=== PATIENT | female | born 1935 | race Caucasian/White ===

== ENCOUNTER 2019-09-15 07:45 | Emergency (ER) | payer MEDICARE, SELFPAY ==
[2019-09-15 07:52] VITALS: BP 164/85; PULSE 77; RESP 16; TEMP 36.6; O2SAT 100
--- NOTE | 2019-09-15 08:09 | ED.LOWEXIN ---
HPI - Extremity Injury (Lower) General Chief Complaint: Extremity Injury, Lower Stated Complaint: hip pain Time Seen by Provider: 09/15/19 07:49 Source: RN notes reviewed History of Present Illness HPI Narrative: A 84 y/o female with a history of hypertension, osteoarthritis, DVT on chronic anticoagulation therapy here with complaints of left hip pain for past few weeks. Patient states that she was seen at urgent care yesterday had an x-ray done. She is here to get a cortisone shot in the hip. She denies any trauma or fever or chills. She states that she lives in [place] and now visiting her son here in [place]. complaint: hip injury Injury: Left: hip Severity: moderate Severity scale (1-10): 5 Relieving factors: nothing Exacerbating factors: movement Related Data Home Medications Medication Instructions Recorded Confirmed Imodium Multi-Symptom Relief 1 tablet PO Q1H PRN 06/30/19 06/30/19 ascorbic acid (vitamin C) [Vitamin 500 mg PO DAILY 06/30/19 06/30/19 C] cholecalciferol (vitamin D3) 400 unit PO DAILY 06/30/19 06/30/19 fosinopril 30 mg PO BID 06/30/19 06/30/19 hydroxyurea 500 mg PO DAILY 06/30/19 06/30/19 metoprolol tartrate 50 mg PO Q12H 06/30/19 06/30/19 pantoprazole 40 mg PO BID 06/30/19 06/30/19 potassium chloride 20 meq PO DAILY 06/30/19 06/30/19 vitamin B complex [B 1 tablet PO DAILY 06/30/19 06/30/19 Complex-Vitamin B12] Allergies Allergy/AdvReac Type Severity Reaction Status Date / Time enoxaparin Allergy Unknown Unknown Verified 09/15/19 07:55 iodine Allergy Unknown Unknown Verified 06/30/19 10:47 sulfur dioxide Allergy Unknown Unknown Verified 06/30/19 10:47 heparin AdvReac Intermediate Unknown Verified 06/30/19 10:47 Sulfa (Sulfonamide AdvReac Intermediate Rash Verified 06/30/19 10:47 Antibiotics) Review of Systems Review of Systems: All systems reviewed & are unremarkable except as noted in HPI and below Constitutional: Constitutional: Reports no additional constitutional complaints Eyes: Eyes: Reports no additional eye complaints Respiratory: Respiratory: Reports no additional respiratory complaints Gastrointestinal: Gastrointestinal: Reports no additional gastrointestinal complaints Musculoskeletal: Musculoskeletal: Reports no additional musculoskeletal complaints [facility] Past Medical History Medical History Anemia Cataracts, bilateral Cholecystectomy planned Depression DVT (deep venous thrombosis) On chronic anticoagulation on Coumadin History of rectal polyps HTN (hypertension) Hx: UTI (urinary tract infection) Kidney stones July 2018 Surgical History Surgical History H/O cystoscopy With ureteral scope due to hydronephrosis July 2018. Hydronephrosis with thought to be due to recent passage of a stone H/O left wrist surgery H/O rectal polypectomy H/O: hysterectomy Due to endometriosis History of cataract surgery Bilateral History of total left hip arthroplasty Left complicated by postop DVT Hx of cholecystectomy Family History Family History Mother Lung cancer Son , of a massive PE prior complications of his leukemia/lymphoma. He was in his 50s. Lymphoma Pulmonary embolism Daughter , Due to brain tumor. No problems noted. Son Brain tumor This is a son that she was visiting at the time of her admission. Parkinsons Social History Social History Social History: The patient is from [place]. She is here visiting her only remaining son. Patient is a lifelong nonsmoker and does not drink alcohol or use illicit substances. She is independent in activities of daily living. Smoking status: Never smoker Second hand tobacco smoke exposure: Yes Alcohol intake: never Substance use: never Substance use ty
== END 2019-09-15 09:07 | disposition home or self-care (01) ==
PROVIDERS: Emergency Provider Family Medicine
DX: M25.552 Pain in left hip (principal); I10 Essential (primary) hypertension; Z86.718 Personal history of other venous thrombosis and embolism; M19.90 Unspecified osteoarthritis, unspecified site; Z79.01 Long term (current) use of anticoagulants; Z86.2 Personal history of diseases of the blood and blood-forming organs and certain disorders involving the immune mechanism; Z87.442 Personal history of urinary calculi; Z98.42 Cataract extraction status, left eye; Z98.41 Cataract extraction status, right eye; Z96.642 Presence of left artificial hip joint
CPT/HCPCS: 99283

== ENCOUNTER 2019-11-24 11:45 | Emergency (ER) | payer MEDICARE, SELFPAY ==
[2019-11-24] VITALS (7 sets, daily range): BP systolic 131–165; BP diastolic 66–80; PULSE 69–75; RESP 10–18; TEMP 37; O2SAT 97–100
--- NOTE | ~2019-11-24 | XR_ITS ---
XR chest 2V 11/24/2019 13:03 Indication: Chest palpitations Procedure: 2 view chest Comparison: 07/24/2019 Findings: Heart size normal. No focal air space disease, pulmonary edema, pleural effusion or suspect ed pneumothorax. The lungs are hyperinflated which is consistent with, but not diagnostic of chronic obstructive pulmonary disease. Impression: 1: No acute cardiopulmonary disease. Reviewed, dictated and finalized at location A. Impression: 1: No acute cardiopulmonary disease.
--- NOTE | 2019-11-24 12:24 | ECG_ITS ---
Measurements Intervals [place] Rate: 72 P: 61 PA: 183 QRS: -30 QRSD: 81 T: -39 QT: 362 QTc: 398 Interpretive Statements SINUS RHYTHM EARLY PRECORDIAL R/S TRANSITION INFERIOR INFARCT, AGE INDETERMINATE BASELINE WANDER- I, II, III ABNORMAL ECG Electronically Signed On 11-24-2019 12:39:55 CDT by Fei Bain D.O.
[2019-11-24] MEDS: ASPIRIN 81 MG CHEWABLE TABLET 324 MG PO (12:36)
[2019-11-24 12:57] LABS: Basophils Percent Auto 0.5 % (0.2-1.2); Eosinophils Absolute Auto 0.1 K/mm3 (0-0.3); Hematocrit 39.6 % (37.0-47.0); Hemoglobin 12.5 g/dL (12.0-15.0); Immature Granulocyte Absolute 0.02 K/mm3 (0.00-0.031); Immature Granulocyte Percent A 0.3 % (0-0.5); Lymphocytes Absolute Auto 1.68 K/mm3 (0.9-3.2); Mean Corpuscular HGB Conc 31.6 g/dl (32-36); Mean Corpuscular Hemoglobin 31.4 pg (26-34); Mean Corpuscular Volume 99.5 fl (80-100); Mean Platelet Volume 8.8 fl (7.4-10.4); Monocytes Absolute Auto 0.4 K/mm3 (0.1-0.6); Monocytes Percent Auto 6.3 % (2.6-8.5); Neutrophils Absolute Auto 3.8 K/mm3 (1.3-6.7); Neutrophils Percent Auto 63.9 % (45.5-73.1); Platelet Count Result 319 k/mm3 (150-375); Red Blood Count 3.98 M/mm3 (4.2-5.4); Red Cell Distribution Width 16.8 % (11.5-14.5)
[2019-11-24 13:05] LABS: Blood Urea Nitrogen 15 mg/dL (7-17); Calcium 9.8 mg/dL (8.4-10.2); Carbon Dioxide 29 mmol/L (22-30); Chloride 104 mmol/L (98-107); Estimated CRCL calculation 45 ml/min; Estimated Glomerular Filt Rate > 60; Glucose 95 mg/dL (65-105); Potassium 4.1 mmol/L (3.4-5.0); Sodium 137 mmol/L (137-145)
[2019-11-24 13:11] LABS: INR 3.2; Partial Thromboplastin Time 41.5 SECONDS (22.3-36.8); Prothrombin Time 32.2 Seconds (11.1-14.7)
[2019-11-24 13:17] LABS: Troponin I < 0.012 ng/mL (0.000-0.034)
--- NOTE | 2019-11-24 13:35 | ED.GENADULT ---
HPI - General Adult General Chief complaint: Unspecified Stated complaint: worried about her pulse Time Seen by Provider: 11/24/19 11:59 Source: RN notes reviewed History of Present Illness HPI narrative: Patient presents emergency department from home for rapid heart rate. Patient states that at home this morning she was checking her blood pressure and pulse with her at home machine when she noted elevated heart rate readings. Patient states she did feel like her heart was racing during these episodes. States she currently is asymptomatic she denies have any fevers or chills chest pain shortness of breath abdominal pain or any other symptoms. Patient denies any previous history of arrhythmia Related Data Home Medications Medication Instructions Recorded Confirmed Imodium Multi-Symptom Relief 1 tablet PO Q1H PRN 06/30/19 06/30/19 ascorbic acid (vitamin C) [Vitamin 500 mg PO DAILY 06/30/19 06/30/19 C] cholecalciferol (vitamin D3) 400 unit PO DAILY 06/30/19 06/30/19 fosinopril 30 mg PO BID 06/30/19 06/30/19 hydroxyurea 500 mg PO DAILY 06/30/19 06/30/19 metoprolol tartrate 50 mg PO Q12H 06/30/19 06/30/19 pantoprazole 40 mg PO BID 06/30/19 06/30/19 potassium chloride 20 meq PO DAILY 06/30/19 06/30/19 vitamin B complex [B 1 tablet PO DAILY 06/30/19 06/30/19 Complex-Vitamin B12] Allergies Allergy/AdvReac Type Severity Reaction Status Date / Time enoxaparin Allergy Unknown Unknown Verified 11/24/19 12:08 iodine Allergy Unknown Unknown Verified 06/30/19 10:47 sulfur dioxide Allergy Unknown Unknown Verified 11/24/19 12:08 heparin AdvReac Intermediate Unknown Verified 11/24/19 12:08 Sulfa (Sulfonamide AdvReac Intermediate Rash Verified 11/24/19 12:08 Antibiotics) Review of Systems Review of Systems: Narrative: Gen.: Denies fevers or chills ENT: Denies congestion Respiratory: Denies shortness of breath or cough CV: See HPI s GI: Denies abdominal pain nausea, emesis or diarrhea Musculoskeletal: Denies back pain or muscle pain Neuro: Denies numbness, tingling, weakness or focal weakness Skin: Denies rash Except as documented, all other systems reviewed and negative PMFSH Past Medical History Medical History Anemia Cataracts, bilateral Cholecystectomy planned Depression DVT (deep venous thrombosis) On chronic anticoagulation on Coumadin History of rectal polyps HTN (hypertension) Hx: UTI (urinary tract infection) Kidney stones July 2018 Family History Family History Mother Lung cancer Son , of a massive PE prior complications of his leukemia/lymphoma. He was in his 50s. Lymphoma Pulmonary embolism Daughter , Due to brain tumor. No problems noted. Son Brain tumor This is a son that she was visiting at the time of her admission. Parkinsons Social History Social History Social History: The patient is from [place]. She is here visiting her only remaining son. Patient is a lifelong nonsmoker and does not drink alcohol or use illicit substances. She is independent in activities of daily living. Smoking status: Never smoker Second hand tobacco smoke exposure: Yes Alcohol intake: never Substance use: never Substance use type: does not use Gender identity (if verbalized by the patient): Female Spiritual care concerns: No Agree to blood products: Yes Exam Narrative: Exam Narrative: APPEARANCE: No acute distress, nontoxic, resting in bed EYES: EOMI HEENT: Normocephalic, atraumatic, OMM RESPIRATORY: No respiratory distress Clear to auscultation bilaterally with no rhonchi wheezing or rales. CARDIOVASCULAR: Regular rate and rhythm without murmurs rubs or gallops. ABDOMINAL: Soft, nontender, nondistended, no rebound or guarding MUSCULOSKELETAl: Moves all extremities. No club
== END 2019-11-24 14:53 | disposition home or self-care (01) ==
PROVIDERS: Emergency Provider Emergency Medicine
DX: R00.2 Palpitations (principal); Z86.718 Personal history of other venous thrombosis and embolism; I10 Essential (primary) hypertension; Z87.440 Personal history of urinary (tract) infections; Z87.19 Personal history of other diseases of the digestive system; R94.31 Abnormal electrocardiogram [ECG] [EKG]
CPT/HCPCS: 36415; 71046; 80048; 84484; 85025; 85610; 85730; 93005; 99284; A9270

== ENCOUNTER 2019-12-09 12:07 | Emergency (ER) | payer MEDICARE, SELFPAY ==
--- NOTE | ~2019-12-09 | XR_ITS ---
EXAMINATION: XR ribs LT 2V w CXR 2V DATE: 12/09/2019 12:58 INDICATION: Left lateral rib pain. TECHNIQUE: Frontal and lateral views of the chest and 3 views of the left ribs were obtained. COMPARISON: Chest 2 views 11/24/2019, CT abdomen and pelvis 09/07/2018 FINDINGS: CHEST TWO VIEWS: The chest demonstrates clear lungs without pneumonia, pleural effusion, or pneumotho rax. The heart size is normal. There are chronic compression fractures in thoracic spine. There are s urgical clips around the gastroesophageal junction. LEFT RIBS: There is no rib fracture. IMPRESSION: 1. No rib fracture. Reviewed, dictated and finalized at location A. IMPRESSION: 1. No rib fracture.
[2019-12-09 12:13] VITALS: BP 148/87; PULSE 79; RESP 18; TEMP 36.9; O2SAT 93
--- NOTE | 2019-12-09 12:19 | ECG_ITS ---
Measurements Intervals [place] Rate: 73 P: 73 PA: 163 QRS: 15 QRSD: 78 T: 24 QT: 371 QTc: 410 Interpretive Statements SINUS RHYTHM NORMAL ECG Electronically Signed On 12-09-2019 13:02:23 CDT by Fei Bain D.O.
--- NOTE | 2019-12-09 12:40 | ED.BACK ---
HPI - Back Pain/Injury General Chief Complaint: Back Pain/Injury Stated Complaint: back pain Time Seen by Provider: 12/09/19 12:25 Source: patient Mode of arrival: ambulatory Limitations: no limitations History of Present Illness HPI Narrative: This is a 84 year old female that presents to the ER for left sided chest/rib pain x 5 days. Reports intermittent sharp left sided rib pain that radiates around her back. Reports this happens even at rest. Will happen during the day and go away on its own. Also reports she has been having trouble with her blood pressure. Reports it has been up and down. Denies fever, shortness of breath or cough. Related Data Home Medications Medication Instructions Recorded Confirmed Imodium Multi-Symptom Relief 1 tablet PO Q1H PRN 06/30/19 06/30/19 ascorbic acid (vitamin C) [Vitamin 500 mg PO DAILY 06/30/19 06/30/19 C] cholecalciferol (vitamin D3) 400 unit PO DAILY 06/30/19 06/30/19 fosinopril 30 mg PO BID 06/30/19 06/30/19 hydroxyurea 500 mg PO DAILY 06/30/19 06/30/19 metoprolol tartrate 50 mg PO Q12H 06/30/19 06/30/19 pantoprazole 40 mg PO BID 06/30/19 06/30/19 potassium chloride 20 meq PO DAILY 06/30/19 06/30/19 vitamin B complex [B 1 tablet PO DAILY 06/30/19 06/30/19 Complex-Vitamin B12] Allergies Allergy/AdvReac Type Severity Reaction Status Date / Time enoxaparin Allergy Unknown Unknown Verified 12/09/19 12:18 iodine Allergy Unknown Unknown Verified 12/09/19 12:18 sulfur dioxide Allergy Unknown Unknown Verified 12/09/19 12:18 heparin AdvReac Intermediate Unknown Verified 12/09/19 12:18 Sulfa (Sulfonamide AdvReac Intermediate Rash Verified 12/09/19 12:18 Antibiotics) Review of Systems Review of Systems: Narrative: CONSTITUTIONAL: Denies fever CARDIOVASCULAR: Reports chest pain. Denies edema RESPIRATORY: Denies cough or dyspnea. All systems reviewed & are unremarkable except as noted in HPI and below PMFSH Social History Social History Social History: The patient is from [place]. She is here visiting her only remaining son. Patient is a lifelong nonsmoker and does not drink alcohol or use illicit substances. She is independent in activities of daily living. Smoking status: Never smoker Second hand tobacco smoke exposure: Yes Alcohol intake: never Substance use: never Substance use type: does not use Gender identity (if verbalized by the patient): Female Spiritual care concerns: No Agree to blood products: Yes Exam Narrative: Exam Narrative: GENERAL: Elderly, well-nourished, and in no acute distress. HEAD: Normocephalic, atraumatic. EYES: EOMI. NECK: Supple. No adenopathy or masses. No carotid bruits or JVD CHEST: Clear to auscultation. No respiratory distress. No wheezes rales or rhonchi. Tender to palpation of left lateral ribs HEART: Regular rate and rhythm. No murmur heard. Normal peripheral pulses. BACK: No midline spinal tenderness EXTREMITIES: Normal range of motion. No edema. SKIN: Warm, dry, no rash. NEURO: No focal deficits. Alert and oriented x3. PSYCH: Normal mood and affect Course Vital Signs Vital signs: Vital Signs Temperature 98.5 F 12/09/19 12:13 Pulse Rate 79 12/09/19 12:13 Respiratory Rate 18 12/09/19 12:13 Blood Pressure 148/87 H 12/09/19 12:13 Pulse Oximetry 93 12/09/19 12:13 Temperature 98.5 F 12/09/19 12:13 Pulse Rate 72 12/09/19 14:02 Respiratory Rate 18 12/09/19 12:13 Blood Pressure 130/64 12/09/19 14:02 Pulse Oximetry 93 12/09/19 12:13 MDM - Back Pain/Injury MDM Narrative Medical decision making narrative: Patient presents the emergency department for left-sided rib/chest pain that has been intermittent for the last 5 days. Currently denies any chest pain. Pain does seem more muscular in nature. Her vitals are stable. She is not orthostatic. CBC and metabolic panel without acute changes. Baseline troponin is negative.
[2019-12-09 13:00] VITALS: BP 109/56; PULSE 75; RESP 14; O2SAT 95
--- NOTE | 2019-12-09 13:00 | PC.NURSE ---
I CALLED LAB AND ADDED ON ORDERS FOR PT INR PTT.
[2019-12-09 13:37] LABS: Basophils Percent Auto 0.5 % (0.2-1.2); Eosinophils Absolute Auto 0.1 K/mm3 (0-0.3); Eosinophils Percent Auto 1.6 % (0-4.4); Hematocrit 37.8 % (37.0-47.0); Hemoglobin 12.1 g/dL (12.0-15.0); Immature Granulocyte Absolute 0.02 K/mm3 (0.00-0.031); Immature Granulocyte Percent A 0.3 % (0-0.5); Lymphocytes Absolute Auto 1.46 K/mm3 (0.9-3.2); Lymphocytes Percent Auto 25.2 % (18.3-44.2); Mean Corpuscular Hemoglobin 31.9 pg (26-34); Mean Corpuscular Volume 99.7 fl (80-100); Mean Platelet Volume 8.9 fl (7.4-10.4); Monocytes Absolute Auto 0.4 K/mm3 (0.1-0.6); Monocytes Percent Auto 6.6 % (2.6-8.5); Neutrophils Absolute Auto 3.8 K/mm3 (1.3-6.7); Neutrophils Percent Auto 65.8 % (45.5-73.1); Platelet Count Result 257 k/mm3 (150-375); Red Blood Count 3.79 M/mm3 (4.2-5.4); Red Cell Distribution Width 17.1 % (11.5-14.5); White Blood Count 5.8 K/mm3 (4.5-10.0)
[2019-12-09 13:53] LABS: Blood Urea Nitrogen 20 mg/dL (7-17); Calcium 9.4 mg/dL (8.4-10.2); Carbon Dioxide 29 mmol/L (22-30); Chloride 104 mmol/L (98-107); Estimated CRCL calculation 46 ml/min; Estimated Glomerular Filt Rate > 60; Glucose 97 mg/dL (65-105); Potassium 4.5 mmol/L (3.4-5.0); Sodium 135 mmol/L (137-145)
[2019-12-09 14:02] VITALS: BP 110/60; BP 123/66; BP 130/64; PULSE 72; PULSE 78
[2019-12-09 14:06] LABS: Troponin I < 0.012 ng/mL (0.000-0.034)
--- NOTE | 2019-12-09 14:39 | PC.NURSE ---
I CALLED BACK TO LAB TO CHECK ON THE ADD-ONS I CALLED ABOUT [facility] AND THEY TOLD ME IT STILL WASN'T BEING RAN SO HE SAID THEY WOULD GET IT GOING
[2019-12-09 14:52] LABS: INR 2.9; Prothrombin Time 29.5 Seconds (11.1-14.7)
[2019-12-09 14:53] LABS: Partial Thromboplastin Time 42.2 SECONDS (22.3-36.8)
[2019-12-09 15:08] VITALS: BP 119/72; PULSE 75; RESP 18; O2SAT 98
== END 2019-12-09 15:09 | disposition home or self-care (01) ==
PROVIDERS: Physician Assistant; Emergency Provider Emergency Medicine
DX: R07.89 Other chest pain (principal)
CPT/HCPCS: 36415; 71046; 71100; 80048; 84484; 85025; 85610; 85730; 93005; 99284

== ENCOUNTER 2020-03-06 16:40 | Emergency (ER) | payer MEDICARE, SELFPAY ==
[2020-03-06 16:44] VITALS: BP 174/85; PULSE 96; RESP 20; TEMP 36.6; O2SAT 99
--- NOTE | 2020-03-06 16:48 | ECG_ITS ---
Measurements Intervals [place] Rate: 88 P: 61 [place]: 167 QRS: 11 QRSD: 79 T: 8 QT: 334 QTc: 405 Interpretive Statements SINUS RHYTHM EARLY PRECORDIAL R/S TRANSITION BORDERLINE T WAVE ABNORMALITY- INFERIOR LEADS BASELINE ARTIFACT- I, II, III, AVR, AVL BORDERLINE ECG Electronically Signed On 03-06-2020 18:17:04 CDT by Fei Bain D.O.
--- NOTE | 2020-03-06 17:01 | PC.NURSE ---
SPOKE WITH LAB AT THIS TIME TO ADD ON CK AT THE VERBAL ORDER REQUEST OF FITZ MONZON.
[2020-03-06 17:10] LABS: Basophils Absolute Auto 0.1 K/mm3 (0.0-0.1); Basophils Percent Auto 0.9 % (0.2-1.2); Eosinophils Absolute Auto 0.1 K/mm3 (0-0.3); Eosinophils Percent Auto 1.4 % (0-4.4); Hematocrit 40.5 % (37.0-47.0); Immature Granulocyte Absolute 0.02 K/mm3 (0.00-0.031); Immature Granulocyte Percent A 0.3 % (0-0.5); Lymphocytes Absolute Auto 2.13 K/mm3 (0.9-3.2); Lymphocytes Percent Auto 36.4 % (18.3-44.2); Mean Corpuscular HGB Conc 32.1 g/dl (32-36); Mean Corpuscular Hemoglobin 32.7 pg (26-34); Mean Platelet Volume 8.5 fl (7.4-10.4); Monocytes Absolute Auto 0.4 K/mm3 (0.1-0.6); Monocytes Percent Auto 7.5 % (2.6-8.5); Neutrophils Absolute Auto 3.1 K/mm3 (1.3-6.7); Neutrophils Percent Auto 53.5 % (45.5-73.1); Platelet Count Result 269 k/mm3 (150-375); Red Blood Count 3.97 M/mm3 (4.2-5.4); Red Cell Distribution Width 15.5 % (11.5-14.5); White Blood Count 5.9 K/mm3 (4.5-10.0)
[2020-03-06 17:35] LABS: Anion Gap 8 mmol/L (8-16); Blood Urea Nitrogen 15 mg/dL (7-17); Calcium 9.4 mg/dL (8.4-10.2); Carbon Dioxide 25 mmol/L (22-30); Chloride 103 mmol/L (98-107); Estimated CRCL calculation 44 ml/min; Estimated Glomerular Filt Rate > 60; Glucose 97 mg/dL (65-105); Potassium 4.2 mmol/L (3.4-5.0); Sodium 136 mmol/L (137-145)
[2020-03-06 17:48] VITALS: BP 151/77; PULSE 82; RESP 14; O2SAT 100
--- NOTE | 2020-03-06 18:00 | ED.GENADULT ---
HPI - General Adult General Chief complaint: Environmental Exposure Stated complaint: FELT LIKE I WAS HAVING A HEAT STROKE/HTN Time Seen by Provider: 03/06/20 17:41 Source: patient Mode of arrival: ambulatory Limitations: no limitations History of Present Illness HPI narrative: This is an 85-year-old female that presents the emergency department for presyncopal episode today. Reports she had just gotten home from the grocery store. Reports she was unloading a lot of groceries. Reports she started to feel lightheaded and like she was going to pass out. Reports she took her blood pressure and it was elevated which prompted her to come to be seen. Reports palpitations/feeling like her heart was racing. Denies fever, vision changes, vomiting, numbness, weakness, chest pain, or shortness of breath. Related Data Home Medications Medication Instructions Recorded Confirmed Imodium Multi-Symptom Relief 1 tablet PO Q1H PRN 06/30/19 06/30/19 ascorbic acid (vitamin C) [Vitamin 500 mg PO DAILY 06/30/19 06/30/19 C] cholecalciferol (vitamin D3) 400 unit PO DAILY 06/30/19 06/30/19 fosinopril 30 mg PO BID 06/30/19 06/30/19 hydroxyurea 500 mg PO DAILY 06/30/19 06/30/19 metoprolol tartrate 50 mg PO Q12H 06/30/19 06/30/19 pantoprazole 40 mg PO BID 06/30/19 06/30/19 potassium chloride 20 meq PO DAILY 06/30/19 06/30/19 vitamin B complex [B 1 tablet PO DAILY 06/30/19 06/30/19 Complex-Vitamin B12] Allergies Allergy/AdvReac Type Severity Reaction Status Date / Time enoxaparin Allergy Unknown Unknown Verified 03/06/20 16:42 iodine Allergy Unknown Unknown Verified 03/06/20 16:42 sulfur dioxide Allergy Unknown Unknown Verified 03/06/20 16:42 heparin AdvReac Intermediate Unknown Verified 03/06/20 16:42 Sulfa (Sulfonamide AdvReac Intermediate Rash Verified 03/06/20 16:42 Antibiotics) Review of Systems Review of Systems: Narrative: CONSTITUTIONAL: Denies fever EYES: Denies visual changes CARDIOVASCULAR: Reports palpitations. Denies chest pain RESPIRATORY: Denies cough or dyspnea. GASTROINTESTINAL: Denies vomiting NEUROLOGIC: Denies headache, numbness, or weakness. All systems reviewed & are unremarkable except as noted in HPI and below PMFSH Social History Social History Social History: The patient is from [place]. She is here visiting her only remaining son. Patient is a lifelong nonsmoker and does not drink alcohol or use illicit substances. She is independent in activities of daily living. Smoking status: Never smoker Second hand tobacco smoke exposure: Yes Alcohol intake: never Substance use: never Substance use type: does not use Gender identity (if verbalized by the patient): Female Spiritual care concerns: No Agree to blood products: Yes Exam Narrative: Exam Narrative: GENERAL: Elderly, well-nourished, and in no acute distress. HEAD: Normocephalic, atraumatic. EYES: PERRLA and EOMI. ENT: Nares clear, no rhinorrhea or epistaxis. Mucous membranes moist. Oropharynx without tonsillar hypertrophy exudate or other lesions. Bilateral TMs pearly ulrich non-bulging NECK: Supple. No adenopathy or masses. CHEST: Clear to auscultation. No respiratory distress. No wheezes rales or rhonchi HEART: Regular rate and rhythm. No murmur heard. Normal peripheral pulses. EXTREMITIES: Normal range of motion. No edema. Strength equal in bilateral upper extremities (5/5) SKIN: Warm, dry, no rash. NEURO: No focal deficits. Alert and oriented x3. Cranial nerves II through XII grossly intact PSYCH: Normal mood and affect Course Vital Signs Vital signs: Vital Signs Temperature 97.9 F 03/06/20 16:44 Pulse Rate 96 03/06/20 16:44 Respiratory Rate 20 03/06/20 16:44 Blood Pressure 174/85 H 03/06/20 16:44 Pulse Oximetry 99 03/06/20 16:44 Temperature 97.9 F 03/06/20 16:44 Pulse Rate 82 03/06/20 17:48 Respiratory Rate 14 03/06/20 17:48 Blood Pr
[2020-03-06 18:02] LABS: Creatine Kinase 42 U/L (30-135)
[2020-03-06 18:09] LABS: INR 3.7; Prothrombin Time 35.8 Seconds (11.1-14.7)
[2020-03-06 18:10] LABS: Partial Thromboplastin Time 42.2 SECONDS (22.3-36.8)
== END 2020-03-06 18:05 | disposition left against medical advice (07) ==
PROVIDERS: Emergency Medicine; Physician Assistant; Emergency Provider Emergency Medicine
DX: R55 Syncope and collapse (principal); R94.31 Abnormal electrocardiogram [ECG] [EKG]
CPT/HCPCS: 36415; 80048; 82550; 85025; 85610; 85730; 93005; 99284

== ENCOUNTER 2020-12-28 17:07 | Emergency (ER) | payer MEDICARE, SELFPAY ==
[2020-12-28 17:12] VITALS: BP 167/93; PULSE 79; RESP 16; TEMP 36.3; O2SAT 97
[2020-12-28 17:22] LABS: Basophils Absolute Auto 0.1 K/mm3 (0.0-0.1); Basophils Percent Auto 1.1 % (0.2-1.2); Eosinophils Absolute Auto 0.1 K/mm3 (0-0.3); Hematocrit 41.1 % (37.0-47.0); Hemoglobin 12.7 g/dL (12.0-15.0); Immature Granulocyte Absolute 0.02 K/mm3 (0.00-0.031); Immature Granulocyte Percent A 0.3 % (0-0.5); Lymphocytes Absolute Auto 1.74 K/mm3 (0.9-3.2); Lymphocytes Percent Auto 27.4 % (18.3-44.2); Mean Corpuscular HGB Conc 30.9 g/dl (32-36); Mean Corpuscular Volume 97.2 fl (80-100); Mean Platelet Volume 8.7 fl (7.4-10.4); Monocytes Absolute Auto 0.5 K/mm3 (0.1-0.6); Monocytes Percent Auto 7.1 % (2.6-8.5); Neutrophils Absolute Auto 3.9 K/mm3 (1.3-6.7); Neutrophils Percent Auto 62.1 % (45.5-73.1); Platelet Count Result 531 k/mm3 (150-375); Red Blood Count 4.23 M/mm3 (4.2-5.4); Red Cell Distribution Width 17.6 % (11.5-14.5); White Blood Count 6.4 K/mm3 (4.5-10.0)
[2020-12-28 17:32] LABS: Alanine Aminotransferase 15 U/L (4-35); Albumin Level 4.2 g/dL (3.5-5.1); Alkaline Phosphatase 66 U/L (38-126); Anion Gap 8 mmol/L (8-16); Aspartate Amino Transferase 36 U/L (14-36); Bilirubin,Total 0.4 mg/dL (0.2-1.3); Blood Urea Nitrogen 12 mg/dL (7-17); Calcium 9.3 mg/dL (8.4-10.2); Carbon Dioxide 25 mmol/L (22-30); Chloride 106 mmol/L (98-107); Estimated CRCL calculation 49 ml/min; Estimated Glomerular Filt Rate > 60; Glucose 100 mg/dL (65-105); Lipase 92 U/L (23-300); Potassium 4.1 mmol/L (3.4-5.0); Sodium 139 mmol/L (137-145)
[2020-12-28 18:57] LABS: Add Urine Microscopic? YES; Appearance Urine Clear (Clear); Bilirubin Urine Negative (Negative); Blood Urine Negative (Negative); Color Urine Yellow (Yellow); Glucose Urine UA Negative (Negative); Ketones Urine Trace mg/dL (Negative); Leukocyte Esterase Ur Negative LEU/UL (Negative); Mucus Urine Rare /lpf; Nitrate Urine Negative (Negative); Protein Urine Negative (Negative); Specific Grav Ur 1.013 (1.001-1.035); Squamous Epithelial Cell Urine Occasional /hpf (Few); Urobilinogen Urine Negative mg/dL (<2.0); WBC Urine 0-3 /hpf
[2020-12-28 20:34] VITALS: BP 180/95; PULSE 71; RESP 20; TEMP 36.5; O2SAT 100
--- NOTE | 2020-12-28 21:06 | ECG_ITS ---
Measurements Intervals [place] Rate: 73 P: 75 [place]: 189 QRS: 0 QRSD: 80 T: 18 QT: 382 QTc: 423 Interpretive Statements SINUS RHYTHM BASELINE ARTIFACT- I, III, AVR, AVL, AVF NORMAL ECG Electronically Signed On 12-29-2020 7:35:20 CDT by Fei Bain D.O.
[2020-12-28 21:50] LABS: Troponin I < 0.012 ng/mL (0.000-0.034)
--- NOTE | 2020-12-28 22:01 | ED.GENADULT ---
HPI - General Adult General Chief complaint: Abdominal Pain Stated complaint: nausea, shaky Time Seen by Provider: 12/28/20 20:39 Source: patient Mode of arrival: ambulatory Limitations: no limitations History of Present Illness HPI narrative: 85-year-old female Pretty healthy except for a platelet problem and a old history of a DVT She is from [place] and here visiting family, she brought crawfish and gumbo but no beignets She visits the ER tonight complaining of just not feeling good all day long her 2 main complaints are that she has been sneezing and has nausea and did not feel like eating very much all day long She did not vomit, she really does not have abdominal pain, does not note diarrhea or constipation She also does not have any urinary symptoms She does not have a sore throat or a cough either Related Data Home Medications Medication Instructions Recorded Confirmed Imodium Multi-Symptom Relief 1 tablet PO Q1H PRN 06/30/19 06/30/19 ascorbic acid (vitamin C) [Vitamin 500 mg PO DAILY 06/30/19 06/30/19 C] cholecalciferol (vitamin D3) 400 unit PO DAILY 06/30/19 06/30/19 fosinopril 30 mg PO BID 06/30/19 06/30/19 hydroxyurea 500 mg PO DAILY 06/30/19 06/30/19 metoprolol tartrate 50 mg PO Q12H 06/30/19 06/30/19 pantoprazole 40 mg PO BID 06/30/19 06/30/19 potassium chloride 20 meq PO DAILY 06/30/19 06/30/19 vitamin B complex [B 1 tablet PO DAILY 06/30/19 06/30/19 Complex-Vitamin B12] Allergies Allergy/AdvReac Type Severity Reaction Status Date / Time enoxaparin Allergy Unknown Unknown Verified 03/06/20 16:42 iodine Allergy Unknown Unknown Verified 03/06/20 16:42 sulfur dioxide Allergy Unknown Unknown Verified 03/06/20 16:42 heparin AdvReac Intermediate Unknown Verified 03/06/20 16:42 Sulfa (Sulfonamide AdvReac Intermediate Rash Verified 03/06/20 16:42 Antibiotics) Review of Systems Review of Systems: All systems reviewed & are unremarkable except as noted in HPI and below Constitutional: Constitutional: Reports no additional constitutional complaints, Denies chills, Reports fatigue, Denies fever(s), Denies headache(s) and Reports weakness Eyes: Eyes: Reports no additional eye complaints and Denies change in vision ENT: Denies headache(s) and Denies sore throat Comments: Sneezing Cardiovascular: Cardiovascular: Denies chest pain and Denies dyspnea Respiratory: Respiratory: Denies cough and Denies dyspnea Gastrointestinal: Gastrointestinal: Denies abdominal pain, Denies bloating, Denies constipation, Denies diarrhea, Reports nausea and Denies vomiting Genitourinary: Genitourinary: Denies urinary frequency, Denies nocturia and Denies dysuria Musculoskeletal: Musculoskeletal: Denies deformity, Denies arthralgias, Denies joint swelling and Denies numbness Integumentary/Breasts: Skin/Breast: Denies rash and Denies wounds Neurologic: Denies headache(s), Denies focal weakness and Denies numbness Psychiatric: Psychiatric: Reports no additional psychiatric complaints Endocrine: Endocrine: Reports no additional endocrine complaints Hematologic/Lymphatic: Hematologic/Lymphatic: Reports no additional hematologic/lymphatic complaints Allergic/Immunologic: Allergic/Immunologic: Reports no additional allergic/immunologic complaints [facility] Past Medical History Medical History (Updated 12/28/20 @ 23:51 by Srinivasan Velasquez MD) Anemia Cataracts, bilateral Cholecystectomy planned Depression DVT (deep venous thrombosis) On chronic anticoagulation on Coumadin History of rectal polyps HTN (hypertension) Hx: UTI (urinary tract infection) Kidney stones July 2018 Surgical History Surgical History H/O cystoscopy With ureteral scope due to hydronephrosis July 2018. Hydronephrosis with thought to be due to recent passage of a stone H/O left wrist surgery H/O rectal polypectomy H/O: hysterectomy Due to endometriosis History of cataract
[2020-12-28] MEDS: LACTATED RINGERS 1,000 ML 150 ML IV CONT (22:02)
[2020-12-28] MEDS: ONDANSETRON INJ 4 MG/2 ML VIAL IV PUSH (22:03)
--- NOTE | 2020-12-28 22:03 | PC.NURSE ---
daughter in law- [phone]
[2020-12-28 22:37] LABS: INR 2.5; Prothrombin Time 27.5 Seconds (11.1-14.7)
[2020-12-28 22:40] VITALS: BP 171/71; PULSE 75; RESP 16; O2SAT 99
--- NOTE | 2020-12-28 23:21 | PC.NURSE ---
Assumed care of pt. at this time. Report from JIMMIE Moncada
--- NOTE | 2020-12-28 23:33 | PC.NURSE ---
Called [id number] to come and pick pack worker patient.
--- NOTE | 2020-12-28 23:43 | PC.NURSE ---
PT. requesting RN call pt. [id number]
[2020-12-29 00:31] VITALS: BP 169/77; PULSE 88; RESP 17; O2SAT 97
== END 2020-12-29 00:30 | disposition home or self-care (01) ==
PROVIDERS: Emergency Provider Emergency Medicine
DX: R11.2 Nausea with vomiting, unspecified (principal); I10 Essential (primary) hypertension; Z86.718 Personal history of other venous thrombosis and embolism; Z79.01 Long term (current) use of anticoagulants; Z87.442 Personal history of urinary calculi; Z87.440 Personal history of urinary (tract) infections; Z98.42 Cataract extraction status, left eye; Z98.41 Cataract extraction status, right eye; Z87.19 Personal history of other diseases of the digestive system; Z96.642 Presence of left artificial hip joint
CPT/HCPCS: 36415; 80053; 81001; 83690; 84484; 85025; 85610; 93005; 96361; 96374; 99284; J2405; J7120